=== PATIENT | male | born 1970 | race Caucasian/White ===

== ENCOUNTER 2019-12-06 19:55 | Emergency (ER) | payer OTHER ==
[~2019-12-06] VITALS: Ht 190.5 cm; Wt 118.0 kg
[2019-12-06] MEDS ORDERED: MELO15TA28 PO (20:06)
[2019-12-06] MEDS ORDERED: OMEP1CAP73 PO (20:06)
[2019-12-06] MEDS ORDERED: FLOM0.4C39 PO (20:06)
[2019-12-06] MEDS ORDERED: METHOCARBAMOL 1,000 MG/10 ML VIAL (J2800) IV ONE (20:45)
[2019-12-06] MEDS ORDERED: KETOROLAC 30 MG/ML 1ML VIAL IV ONE (20:45)
--- NOTE | 2019-12-06 22:43 | REPVR ---
PROCEDURE INFORMATION: Exam: CT Lumbar Spine Without Contrast Exam date and time: 12/06/2019 10:20 PM Age: 49 years old Clinical indication: Low back pain; Additional info: Left sided radiculopathy, new onset TECHNIQUE: Imaging protocol: Computed tomography images of the lumbar spine without contrast. Radiation optimization: All CT scans at this facility use at least one of these dose optimization techniques: automated exposure control; mA and/or kV adjustment per patient size (includes targeted exams where dose is matched to clinical indication); or iterative reconstruction. COMPARISON: No relevant prior studies available. FINDINGS: Vertebrae: No acute fracture. Normal alignment. L1-L2: The disc is adequately well maintained with minimal facet arthropathy and no spinal or foraminal stenosis. L2-L3: The disc is adequately well maintained with mild facet arthropathy and no spinal or foraminal stenosis. L3-L4: Slight interspace narrowing with slight retrolisthesis and minimal diffuse bulge of the disc with loss of posterior concavity. There is minimal facet arthropathy and no spinal or foraminal stenosis. L4-L5: Disc space height is within normal limits with minimal posterior protrusion of the disc and minimal facet arthropathy. There is no significant spinal or foraminal stenosis. L5-S1: Moderate interspace narrowing with vacuum phenomenon and endplate sclerosis. There is minimal posterior protrusion with associated osteophytes and minimal facet arthropathy. No significant spinal stenosis and low normal size of the neural foramen. Soft tissues: Unremarkable. IMPRESSION: 1. Degenerative disc change at L5-S1 with minimal posterior protrusion and associated osteophytes with no significant spinal or foraminal stenosis. 2. There is minimal to mild multilevel facet arthropathy and minimal posterior protrusion or diffuse bulge from L3-L5 with no additional spinal or foraminal stenosis. Electronically signed by: Edu Olivier On 12/06/2019 22:43:35 PM
[2019-12-06 22:45] VITALS: BP 158/92
[2019-12-06] MEDS ORDERED: ROBA750T4 PO (22:57)
== END 2019-12-06 23:12 | disposition home or self-care (01) ==
LOC: M ED 19:55
DX: M54.16 Radiculopathy, lumbar region (principal); Z79.899 Other long term (current) drug therapy
CPT/HCPCS: 72131; 96374; 96375; 99284; J1885; J2800

== ENCOUNTER → 2020-03-12 | Outpatient (CLI) | payer OTHER ==
[~2020-03-12] MED LIST: FLOM0.4C39 PO; MELO15TA28 PO; OMEP1CAP73 PO; ROBA750T4 PO
--- NOTE | 2020-03-12 12:00 | REPVR ---
PROCEDURE INFORMATION: Exam: MR Lumbar Spine Without Contrast. Exam date and time: 03/12/2020 10:27 AM Age: 49 years old Clinical indication: Low back pain; Additional info: Lower back pain TECHNIQUE: Imaging protocol: Multiplanar magnetic resonance images of the lumbar spine without intravenous contrast. COMPARISON: CT Spine, lumbar w/o contrast 12/06/2019 10:08 PM FINDINGS: Vertebrae: There is straightening of the normal lumbar lordosis. There is 3 mm of grade 1 retrolisthesis of L4 with respect to L5. There is 5 mm of grade 1 retrolisthesis of L5 with respect to S1. Normal vertebral body alignment is otherwise preserved. There is moderate to severe intervertebral disc space loss at L5/S1, with endplate changes. And a changes the to 1 Spinal cord: Normal signal. No cord compression. L1-L2: No significant disc disease. No significant spinal canal stenosis. No neural foraminal stenosis. L2-L3: No significant disc disease. No significant spinal canal stenosis. No neural foraminal stenosis. L3-L4: There is shallow disc bulging. There is mild facet and ligamentous hypertrophy. There is mild canal stenosis. There is mild bilateral neural foraminal narrowing. L4-L5: There is diffuse disc bulging with a large right paracentral/subarticular disc protrusion. This measures up to 7 mm in AP dimension. This compresses the thecal sac, resulting in severe canal stenosis, and effaces the right lateral recess. There is [id number] bilateral neural foraminal narrowing. L5-S1: There is diffuse disc bulging. There is mild facet hypertrophy. There is moderate bilateral neural foraminal narrowing. Soft tissues: Unremarkable. IMPRESSION: Degenerative disc disease and spondylosis. At L4/5, large right paracentral/subarticular disc protrusion effaces the right lateral recess and compresses the thecal sac, resulting in severe stenosis. Electronically signed by: Hue Lundy On 03/12/2020 12:00:15 PM
== END ==
LOC: M RAD 10:28
PROVIDERS: ATTEND Physician Assistant Medical
DX: M51.26 Other intervertebral disc displacement, lumbar region (principal); M47.816 Spondylosis without myelopathy or radiculopathy, lumbar region